=== PATIENT | female | born 1985 | race Two or more races ===

== ENCOUNTER → 2019-11-13 | Outpatient (REF) | payer BC, MEDICAID, SELFPAY | LOC: M SFHCLERA 14:01 | PROVIDERS: ATTEND Physician Assistant | DX: Z11.1 Encounter for screening for respiratory tuberculosis (principal) ==

== ENCOUNTER → 2019-11-13 | Outpatient (CLI) | payer BC, MEDICAID, SELFPAY ==
--- NOTE | 2019-11-13 14:51 | REP ---
CHEST, TWO VIEWS: No comparisons. Two views of the chest are performed. There is patchy infiltrate in the right upper lobe. Postprimary tuberculosis cannot be excluded. There is also a band of fibroatelectasis in the left upper lobe and the left hilum appears mildly retracted superiorly. The heart is normal in size. The mediastinal silhouette is unremarkable. Visualized osseous structures are intact. IMPRESSION: Patchy right upper lobe infiltrate. Band of fibroatelectasis left upper lobe. Postprimary tuberculosis cannot be excluded. Electronically Signed by Gian Mon MD 11/17/2019 03:59 P
== END ==
LOC: M LRY 14:06
PROVIDERS: ATTEND Physician Assistant
DX: Z11.1 Encounter for screening for respiratory tuberculosis (principal)

== ENCOUNTER → 2019-11-16 | Outpatient (REF) | payer BC, OTHER, SELFPAY | LOC: M SFHCLERA 08:37 | PROVIDERS: ATTEND Physician Assistant | DX: Z11.1 Encounter for screening for respiratory tuberculosis (principal) ==

== ENCOUNTER → 2019-11-17 | Outpatient (REF) | payer OTHER | LOC: M SFHCLERA 08:33 | PROVIDERS: ATTEND Physician Assistant | DX: Z11.1 Encounter for screening for respiratory tuberculosis (principal) ==

== ENCOUNTER → 2019-11-18 | Outpatient (REF) | payer BC, OTHER, SELFPAY | LOC: M SFHCLUC 11:12 | PROVIDERS: ATTEND Physician Assistant | DX: Z11.1 Encounter for screening for respiratory tuberculosis (principal) ==

== ENCOUNTER → 2019-11-19 | Outpatient (REF) | payer BC, OTHER, SELFPAY ==
[2019-11-19 13:09] LABS: HEMATOCRIT 43.7 % (36.0-47.0); HEMOGLOBIN 14.1 g/dl (12.0-15.5); MEAN CORPUSCULAR HEMOGLOBIN 28.3 pg (27.0-33.0); MEAN CORPUSCULAR HGB CONC 32.3 g/dl (32.0-36.5); MEAN CORPUSCULAR VOLUME 87.8 fl (80.0-96.0); PLATELET COUNT, AUTOMATED 214 10^3/uL (150-450); RED BLOOD COUNT 4.98 10^6/uL (4.00-5.40); WHITE BLOOD COUNT 7.6 10^3/uL (4.0-10.0)
[2019-11-19 13:30] LABS: ERYTHROCYTE SEDIMENTATION RATE 22 mm/hr (0-20)
[2019-11-19 13:39] LABS: ALBUMIN 3.4 GM/DL (3.2-5.2); ALT/SGPT 17 U/L (12-78); BILIRUBIN,TOTAL 0.3 MG/DL (0.2-1.0); BLOOD UREA NITROGEN 12 MG/DL (7-18); CARBON DIOXIDE LEVEL 25 MEQ/L (21-32); CHLORIDE LEVEL 103 MEQ/L (98-107); CREATININE FOR GFR 0.66 MG/DL (0.55-1.30); GLOMERULAR FILTRATION RATE > 60.0 (>60); GLUCOSE, FASTING 284 MG/DL (70-100); POTASSIUM SERUM 4.4 MEQ/L (3.5-5.1); SODIUM LEVEL 134 MEQ/L (136-145); TOTAL PROTEIN 7.7 GM/DL (6.4-8.2)
[2019-11-20 08:30] LABS: HIV 1&2 SCREEN CENTAUR NEGATIVE (NEGATIVE)
== END ==
LOC: M SFHCLERA 09:36
PROVIDERS: ATTEND Physician Assistant
DX: Z11.1 Encounter for screening for respiratory tuberculosis (principal)

== ENCOUNTER → 2019-11-30 | Outpatient (REF) | payer BC, OTHER, SELFPAY ==
[2019-11-30 14:11] LABS: BLOOD UREA NITROGEN 10 MG/DL (7-18); CALCIUM LEVEL 9.3 MG/DL (8.5-10.1); CARBON DIOXIDE LEVEL 25 MEQ/L (21-32); CHLORIDE LEVEL 105 MEQ/L (98-107); CHOLESTEROL LEVEL 241 MG/DL (<200); CHOLESTEROL RISK RATIO 2.802 (<5); CREATININE FOR GFR 0.66 MG/DL (0.55-1.30); GLOMERULAR FILTRATION RATE > 60.0 (>60); GLUCOSE, FASTING 284 MG/DL (70-100); HDL CHOLESTEROL 86 MG/DL (>40); LDL CHOLESTEROL 142 MG/DL (<100); NON-HDL-C 155 MG/DL; SODIUM LEVEL 136 MEQ/L (136-145); TRIGLYCERIDES LEVEL 63 MG/DL (<150)
[2019-11-30 14:35] LABS: HEPATITIS B SURFACE ANTIBODY POSITIVE (POSITIVE); HEPATITIS B SURFACE ANTIGEN NEGATIVE (NEGATIVE)
[2019-11-30 14:51] LABS: HEPATITIS C VIRUS ABY INDEX 0.1 INDEX (<0.8)
[2019-12-01 08:12] LABS: HEPATITIS A IgG TOTAL Positive (Negative); HEPATITIS B CORE ANTIBODY IGG Positive (Negative)
== END ==
LOC: M SFHCPLAZ 10:47
PROVIDERS: ATTEND Internal Medicine Infectious Disease
DX: Z87.898 Personal history of other specified conditions (principal); E11.9 Type 2 diabetes mellitus without complications

== ENCOUNTER → 2019-12-03 | Outpatient (REF) | payer MEDICAID, SELFPAY ==
[2019-12-03 17:14] LABS: CREATININE, URINE 77.7 MG/DL
[2019-12-08 00:09] LABS: ISLET CELL ANTIBODIES Negative (Neg:<1:1)
== END ==
LOC: M SFHCLERA 11:39
PROVIDERS: ATTEND Family Medicine
DX: R73.9 Hyperglycemia, unspecified (principal)

== ENCOUNTER → 2020-01-01 | Outpatient (CLI) | payer BC ==
[~2020-01-01] MED LIST: ISOVUE-370 76% 100ML VIAL As Ordered ONE
--- NOTE | 2020-01-01 10:56 | REP ---
REASON: Followup abnormal plain film examination of 11/13/2019, which has been reviewed. CONTRAST: 100 mL Isovue-370. There is no mediastinal or hilar adenopathy. There are no pleural or pericardial effusions. The imaged upper abdomen and imaged osseous structures are within normal limits. Evaluation of the lung street shows numerable pulmonary nodules various sizes from 3 mm to 1.3 cm, too numerous to count or individually assess, some pleural based, most intraparenchymal. In addition, the largest 1.3 cm-sized nodule seen in the left lung apical region has concomitant stranding and spiculation which extends to the anterior pleura. Two nodules abut each other in the right upper lobe, the largest component measures 1.2 cm. There is no shelbie evidence of a cavitary mass lesion. IMPRESSION: Markedly abnormal lung street with numerable pulmonary nodules, as described above. Etiology uncertain. Neoplastic versus infectious versus autoimmune. Electronically Signed by Gregory Vemra DO 01/01/2020 11:38 A
== END ==
LOC: M RAD 08:48
PROVIDERS: ATTEND Internal Medicine Infectious Disease
DX: R91.8 Other nonspecific abnormal finding of lung field (principal)
CPT/HCPCS: 71260; Q9967

== ENCOUNTER → 2020-01-11 | Outpatient (REF) | payer BC ==
[2020-01-11 12:54] LABS: HEMATOCRIT 38.6 % (36.0-47.0); HEMOGLOBIN 12.6 g/dl (12.0-15.5); MEAN CORPUSCULAR HGB CONC 32.6 g/dl (32.0-36.5); MEAN CORPUSCULAR VOLUME 88.7 fl (80.0-96.0); PLATELET COUNT, AUTOMATED 211 10^3/uL (150-450); RED BLOOD COUNT 4.35 10^6/uL (4.00-5.40); WHITE BLOOD COUNT 5.2 10^3/uL (4.0-10.0)
[2020-01-11 13:04] LABS: INR 1.03; PROTHROMBIN TIME 13.2 SECONDS (11.8-14.0)
[2020-01-11 13:05] LABS: PARTIAL THROMBOPLASTIN TIME 29.9 SECONDS (25.0-38.4)
== END ==
LOC: M LAB REF 12:39
PROVIDERS: ATTEND Internal Medicine Infectious Disease
DX: R91.1 Solitary pulmonary nodule (principal)

== ENCOUNTER → 2020-01-22 | Outpatient (CLI) | payer BC ==
[~2020-01-22] MED LIST changes: -ISOVUE-370 76% 100ML VIAL As Ordered ONE; +LANTINJ4 SC; +LIDOCAINE 1% MDV 20ML VIAL As Ordered ONE; +METF500T13 PO
--- NOTE | 2020-01-22 11:39 | REP ---
CHEST, SINGLE VIEW: Single view of the chest is performed status post left lung biopsy. I do not see evidence of a pneumothorax. Left upper lobe mass is noted. Ill-defined right upper lobe opacities are seen. Heart is normal in size. IMPRESSION: No pneumothorax, status post left lung biopsy. Electronically Signed by Gian Mon MD 01/22/2020 12:02 P
--- NOTE | 2020-01-22 13:28 | REP ---
CHEST, SINGLE VIEW: Single view of the chest is performed and compared to prior exam of the same day. Patient is status post left lung biopsy. There is a very small left apical pneumothorax. Left upper lobe mass is again seen. Ill-defined parenchymal opacities are again seen in the right upper lobe. Electronically Signed by Gian Mon MD 01/22/2020 02:44 P
[2020-01-22 14:00] VITALS: BP 133/82
--- NOTE | 2020-01-22 14:57 | REP ---
CHEST, SINGLE VIEW: Single view of the chest is performed status post left lung biopsy and compared to prior exams of the same day. The small left apical pneumothorax is stable. The patient is clinically stable. She will be discharged with instructions to return to the emergency department if any significant symptoms develop. Electronically Signed by Gian Mon MD 01/22/2020 03:07 P
--- NOTE | 2020-01-22 15:16 | REP ---
CT-GUIDED LEFT UPPER LOBE LUNG BIOPSY The procedure was performed under the direct supervision of Dr. Mon. Patient has a history of a 1.3 cm nodule in the left upper lobe seen on a previous CT scan dated 01/01/2020. The risks and benefits of the procedure were explained to the patient and informed consent was obtained through an valve inspector. The left upper lobe lung nodule was localized using CT guidance. The skin was prepped and draped in a sterile fashion. 1% lidocaine was used as a local anesthetic. Using CT guidance a 19/20 gauge coaxial needle biopsy system was inserted and advanced into the nodule. Six core biopsy samples were obtained and sent to lab. The chest x-ray performed immediately after the procedure did not demonstrate a pneumothorax. A film performed to hours later demonstrates a very small left apical pneumothorax. Another chest x-ray was performed to hours later showed a stable small left apical pneumothorax. The patient's vital signs were stable. Her O2 saturations were 100% on room air. Initially her discomfort rated a 2 out of 10. The patient tolerated the procedure well. After the appropriate amount of monitored convalescence the patient was discharged from the department. Electronically Signed by LARRY Gloria 01/22/2020 03:00 P Electronically Signed by Gian Mon MD 01/22/2020 03:07 P
== END ==
LOC: M IRPRO 07:44
PROVIDERS: ATTEND Internal Medicine Infectious Disease
DX: R91.1 Solitary pulmonary nodule (principal); Z22.7 Latent tuberculosis; J98.4 Other disorders of lung

== ENCOUNTER → 2020-02-16 | Outpatient (REF) | payer BC ==
[~2020-02-16] MED LIST changes: -LIDOCAINE 1% MDV 20ML VIAL As Ordered ONE
[2020-02-16 17:37] LABS: BASO % 0.3 % (0.0-1.0); EOS % 0.1 % (0.0-3.0); HEMATOCRIT 39.1 % (36.0-47.0); HEMOGLOBIN 12.9 g/dl (12.0-15.5); LYMPH # 2.1 10^3/uL (1.5-5.0); LYMPH % 31.2 % (24.0-44.0); MEAN CORPUSCULAR HEMOGLOBIN 28.6 pg (27.0-33.0); MEAN CORPUSCULAR VOLUME 86.7 fl (80.0-96.0); MONO # 0.4 10^3/uL (0.0-0.8); MONO % 5.7 % (0.0-5.0); NEUTROPHILS # 4.3 10^3/uL (1.5-8.5); NEUTROPHILS % 62.4 % (36.0-66.0); PLATELET COUNT, AUTOMATED 214 10^3/uL (150-450); RED BLOOD COUNT 4.51 10^6/uL (4.00-5.40); WHITE BLOOD COUNT 6.9 10^3/uL (4.0-10.0)
[2020-02-16 17:46] LABS: PROTHROMBIN TIME 12.9 SECONDS (11.8-14.0)
[2020-02-16 17:47] LABS: PARTIAL THROMBOPLASTIN TIME 29.3 SECONDS (25.0-38.4)
[2020-02-16 18:02] LABS: BLOOD UREA NITROGEN 11 MG/DL (7-18); CALCIUM LEVEL 9.1 MG/DL (8.5-10.1); CARBON DIOXIDE LEVEL 25 MEQ/L (21-32); CHLORIDE LEVEL 105 MEQ/L (98-107); CREATININE FOR GFR 0.66 MG/DL (0.55-1.30); GLOMERULAR FILTRATION RATE > 60.0 (>60); GLUCOSE, FASTING 172 MG/DL (70-100); POTASSIUM SERUM 4.8 MEQ/L (3.5-5.1); RHEUMATOID FACTOR QUANT < 10.0 IU/ML (<15.0); SODIUM LEVEL 134 MEQ/L (136-145)
[2020-02-21 08:10] LABS: ANCA-ATYPICAL <1:20 titer (Neg:<1:20); ANGIOTENSIN 1 CONVERTING ENZYM 35 U/L (14-82); ASPERGILLUS FLAVUS ABY Negative (Neg:<1:1); ASPERGILLUS FUMIGATUS ABY Negative (Neg:<1:1); ASPERGILLUS NIGER ABY Negative (Neg:<1:1); BLASTOMYCES ANTIBODY LEVEL Negative (Neg:<1:1); CRYPTOCOCCUS ANTIGEN SER Negative (Negative); CYTOPLASMIC NEUTROP AB ANCA-C <1:20 titer (Neg:<1:20); HISTOPLASMOSIS ANTIBODY Negative (Neg:<1:1); PERINUCLEAR AB ANCA-P <1:20 titer (Neg:<1:20)
== END ==
LOC: M LAB REF 16:49
PROVIDERS: ATTEND Internal Medicine Pulmonary Disease
DX: R91.8 Other nonspecific abnormal finding of lung field (principal)

== ENCOUNTER → 2020-03-10 | Outpatient (CLI) | payer BC ==
--- NOTE | 2020-03-10 08:41 | REP ---
Clinical: Follow up abnormal lung findings. Technique: Axial noncontrast images from the thoracic inlet to the upper abdomen with coronal and sagittal re-formations. Comparison: 01/01/2020. Findings: Innumerable bilateral pulmonary nodules measuring up to 1.5 cm diameter along with areas of linear fibrosis/scarring are again identified and unchanged as compared to prior dated 01/01/2020. Subtle mediastinal and hilar adenopathy cannot be excluded although evaluation is limited by the lack of contrast. No new consolidation/nodule or mass lesion is appreciated. No effusion. No pneumothorax. Tracheobronchial tree is patent. Further evaluation of the mediastinum demonstrates relatively normal thoracic aorta, pulmonary vasculature, and heart/pericardium. Musculoskeletal structures without focal osseous abnormality. Impression: 1. Innumerable bilateral pulmonary nodules and areas of scarring/fibrosis unchanged compared to prior examination. 2. No new acute process identified. Electronically Signed by James Vasquez MD 03/10/2020 08:32 A
== END ==
LOC: M RAD 07:26
PROVIDERS: ATTEND Internal Medicine Pulmonary Disease
DX: R91.8 Other nonspecific abnormal finding of lung field (principal); J84.10 Pulmonary fibrosis, unspecified

== ENCOUNTER → 2020-03-28 | Outpatient (REF) | payer BC ==
[2020-03-28 17:51] LABS: BASO % 0.3 % (0.0-1.0); EOS % 0.3 % (0.0-3.0); HEMATOCRIT 37.5 % (36.0-47.0); HEMOGLOBIN 12.1 g/dl (12.0-15.5); LYMPH # 3.3 10^3/uL (1.5-5.0); LYMPH % 52.3 % (24.0-44.0); MEAN CORPUSCULAR HEMOGLOBIN 28.5 pg (27.0-33.0); MEAN CORPUSCULAR HGB CONC 32.3 g/dl (32.0-36.5); MEAN CORPUSCULAR VOLUME 88.2 fl (80.0-96.0); MONO # 0.3 10^3/uL (0.0-0.8); MONO % 5.4 % (0.0-5.0); NEUTROPHILS # 2.6 10^3/uL (1.5-8.5); NEUTROPHILS % 41.5 % (36.0-66.0); PLATELET COUNT, AUTOMATED 249 10^3/uL (150-450); RED BLOOD COUNT 4.25 10^6/uL (4.00-5.40); WHITE BLOOD COUNT 6.3 10^3/uL (4.0-10.0)
[2020-03-28 18:02] LABS: INR 0.94; PARTIAL THROMBOPLASTIN TIME 28.7 SECONDS (25.0-38.4); PROTHROMBIN TIME 12.3 SECONDS (11.8-14.0)
[2020-03-28 18:10] LABS: BLOOD UREA NITROGEN 10 MG/DL (7-18); CALCIUM LEVEL 9.5 MG/DL (8.5-10.1); CARBON DIOXIDE LEVEL 29 MEQ/L (21-32); CHLORIDE LEVEL 104 MEQ/L (98-107); CREATININE FOR GFR 0.82 MG/DL (0.55-1.30); GLOMERULAR FILTRATION RATE > 60.0 (>60); GLUCOSE, FASTING 112 MG/DL (70-100); POTASSIUM SERUM 3.9 MEQ/L (3.5-5.1); SODIUM LEVEL 137 MEQ/L (136-145)
== END ==
LOC: M LAB REF 17:02
PROVIDERS: ATTEND Internal Medicine Pulmonary Disease
DX: R91.8 Other nonspecific abnormal finding of lung field (principal)

== ENCOUNTER 2020-04-06 07:00 | Day surgery (SDC) | payer BC ==
[2020-04-06] MEDS ORDERED: ONDANSETRON 4MG/2ML VIAL As Ordered ONE (07:19)
[2020-04-06] MEDS ORDERED: ROCURONIUM BROMIDE 50 MG/5 ML VIAL As Ordered ONE ×2 (07:19→09:43)
[2020-04-06] MEDS ORDERED: LIDOCAINE 2% 100MG/5ML SDV (FOR ANES.) As Ordered ONE ×2 (07:19→08:41)
[2020-04-06] MEDS ORDERED: dexameTHASONE 4 MG/ML 1ML VIAL (J1100 PER 1MG) As Ordered ONE (07:19)
[2020-04-06] MEDS ORDERED: propofoL 200 MG/20 ML VIAL As Ordered ONE (07:19)
[2020-04-06] MEDS ORDERED: fentaNYL 100 MCG/2 ML INJECTION (J3010) As Ordered ONE ×2 (07:20→10:14)
[2020-04-06] MEDS ORDERED: MIDAZOLAM INJ 2MG/2ML VIAL (J2250 PER 1MG) As Ordered ONE (07:20)
[2020-04-06] MEDS ORDERED: EPINEPHrine 1MG/10ML SYRINGE 1.5IN As Ordered ONE (07:33)
[2020-04-06] MEDS ORDERED: CETACAINE SPRAY 5GM As Ordered ONE (07:33)
[2020-04-06] MEDS ORDERED: THROMBIN SOLN 5,000 UNITS VIAL As Ordered ONE (07:33)
[2020-04-06] MEDS ORDERED: ALBUTEROL SULFATE 2.5 MG/0.5 ML INH NEB SOLN ONE (08:07)
[2020-04-06] MEDS ORDERED: ALBUTEROL SULFATE 2.5 MG/0.5 ML INH NEB SOLN As Ordered ONE (08:07)
[2020-04-06] MEDS ORDERED: LACRILUBE (AKWA TEARS) OPHTH OINT 3.5 GM As Ordered ONE (08:56)
[2020-04-06] MEDS ORDERED: PHENYLephrine HCL 500 MCG/5 ML (100MCG/ML) SYRINGE (J2370) As Ordered ONE (09:09)
[2020-04-06] MEDS ORDERED: SUGAMMADEX SODIUM 500 MG/5 ML VIAL (BRIDION) As Ordered ONE (09:33)
[2020-04-06] MEDS ORDERED: ACETAMINOPHEN 1000MG 100ML IV BTL (OFIRMEV) (J0131 PER 10MG) As Ordered ONE (09:57)
--- NOTE | 2020-05-18 11:26 | ROOR ---
Patient Name: Patricia Barton Procedure Date: 04/06/2020 7:28 AM Date of : 1985 Admit Type: Outpatient Age: 34 Room: Main OR Note Status: Sister Superior Override Attending MD: Va Acosta MD Procedure: Bronchoscopy Indications: Abnormal CT scan of chest Providers: Va Acosta MD (Doctor), Hemant Villarreal DO (1st Assisting Doctor), Rasheed Garduno [facility] (2nd Assisting Doctor) Referring MD: Vera BRYSON MD. (Referring MD) Requesting Physician: Medicines: General Anesthesia, Cetacaine topical, Lidocaine 4% via nebulizer with Albuterol 2.5 mg Complications: No immediate complications. Estimated blood loss: Minimal Procedure: Pre-Anesthesia Assessment: - Prior to the procedure, a History and Physical was performed, and patient medications and allergies were reviewed. The patient's tolerance of previous anesthesia was also reviewed. The risks and benefits of the procedure and the sedation options and risks were discussed with the patient. All questions were answered, and informed consent was obtained. Prior Anticoagulants: The patient has taken no previous anticoagulant or antiplatelet agents. ASA Grade Assessment: II - A patient with mild systemic disease. After reviewing the risks and benefits, the patient was deemed in satisfactory condition to undergo the procedure. The Bronchoscope was introduced through the mouth, via the endotracheal tube (the patient was intubated for the procedure) and advanced to the tracheobronchial tree of both lungs. The procedure was accomplished without difficulty. The patient tolerated the procedure well. Findings: The endotracheal tube is in good position. The visualized portion of the trachea is of normal caliber. The kevin is sharp. The tracheobronchial tree was examined to at least the first subsegmental level. Bronchial mucosa was normal; there are no endobronchial lesions, and no secretions. There was anatomic variant in right upper lobe with only two bronchial segments and in right middle lobe there were three bronchial segments. In the left upper lobe there was anatomic variant with three bronchial segments. [place] robotic bronchoscopy with electreomagnetic navigational bronchscopy was performed. The CT scan was used for planning purposes. A virtual bronchoscopic image was generated using the planning software and the kevin and right mainstem registration points were used for navigation. The target in the apical-posterior segment of the left upper lobe was marked. A nodule approx 1.4 cm in size was found and a pathway was created earlier and followed by robotic navigational bronchoscopy. Positioning was confirmed using fluoroscopy and centrally (in relation to the lesion) was confirmed using the Olympus radial probe US catheter. The locatable guide was removed from the extended working channel. Transbronchial needle aspirations of a nodule were performed in the posterior segment of the left upper lobe using a fine (21 gauge) needle and sent for routine cytology. The procedure was guided by fluoroscopy. Transbronchial needle aspiration technique was selected because the sampling site was not visible endoscopically. Transbronchial biopsies of a nodule were performed in the posterior segment of the left upper lobe using forceps and sent for histopathology examination. The procedure was guided by fluoroscopy. Transbronchial biopsy technique was selected because the sampling site was not accessible using standard endoscopic (bronchoscopic) techniques. Fluoroscopy guided transbronchial brushings of a nodule were obtained in the posterior segment of the left upper lobe with a needle brush and sent for histopathology examination. Transbronchial brushing technique was selected because the sampling site was not visible endoscopically. Bronchoalveolar lavage was performed in the [place] apical posterior segments (B1 & B2) of the lung and sent for cell count, bacterial culture, viral smears & culture, and fungal & AFB analysis and cytology. The return was blood-tinged and cloudy. Bronchoalveolar lavage was performed in the RUL anterior segment (B3) of the lung and sent for cell count, bacterial culture, viral smears & culture, and fungal & AFB analysis and cytology. The return was cloudy. Impression: - Abnormal CT scan of chest - The airway examination was normal. - Electromagnetic navigation bronchoscopy was performed. - A transbronchial needle aspiration was performed. - Transbronchial lung biopsies were performed. - Transbronchial brushings were obtained. - Bronchoalveolar lavage was performed. - Bronchoalveolar lavage was performed. Recommendation: - Follow up with bronchoscopist as previously scheduled. Va Acosta MD 04/06/2020 1:15:57 PM Terry Ledesma, Rasheed Garduno DO, [facility] Number of Addenda: 0 Note Initiated On: 04/06/2020 7:28 AM
--- NOTE | 2020-05-27 14:34 | REP ---
PORTABLE CHEST X-RAY CLINICAL: Postoperative bronchoscopy. COMPARISON: 01/22/2020. FINDINGS: The mediastinum and cardiac silhouette are within normal limits and stable. There is an area of linear scarring extending from the left suprahilar region toward the left apex, as well as subtle nodular opacities in the periphery of the right upper lung zone, which remain stable compared to prior examination. No acute consolidation, effusion, or pneumothorax. Skeletal structures intact. IMPRESSION: Stable findings as described above. MTDD
== END 2020-04-06 11:30 | disposition home or self-care (01) ==
LOC: M SDC 07:00
PROVIDERS: ATTEND Internal Medicine Pulmonary Disease
DX: R91.8 Other nonspecific abnormal finding of lung field (principal); E10.9 Type 1 diabetes mellitus without complications; Z79.4 Long term (current) use of insulin; Z79.84 Long term (current) use of oral hypoglycemic drugs; A15.0 Tuberculosis of lung; B38.9 Coccidioidomycosis, unspecified
CPT/HCPCS: 31623; 31624; 31627; 31628; 31629; 36415; 71045; 76000; 82947; 87070; 87102; 87116; 87205; 87206; 88104; 88173; 88305; J0131; J1100; J2250; J2370; J2405; J3010; S2900

== ENCOUNTER → 2020-04-13 | Outpatient (REF) | payer BC ==
[2020-05-28 17:05] LABS: ALBUMIN 3.4 GM/DL (3.2-5.2); ALT/SGPT 13 U/L (12-78); BILIRUBIN,TOTAL 0.5 MG/DL (0.2-1.0); BLOOD UREA NITROGEN 10 MG/DL (7-18); CALCIUM LEVEL 9.2 MG/DL (8.5-10.1); CARBON DIOXIDE LEVEL 25 MEQ/L (21-32); CHLORIDE LEVEL 106 MEQ/L (98-107); CHOLESTEROL LEVEL 208 MG/DL (<200); CHOLESTEROL RISK RATIO 3.104 (<5); CREATININE FOR GFR 0.78 MG/DL (0.55-1.30); GLOMERULAR FILTRATION RATE > 60.0 (>60); GLUCOSE, FASTING 172 MG/DL (70-100); HDL CHOLESTEROL 67 MG/DL (>40); HEMOGLOBIN A1c 7.9 %; LDL CHOLESTEROL 125 MG/DL (<100); NON-HDL-C 141 MG/DL; POTASSIUM SERUM 4.6 MEQ/L (3.5-5.1); SODIUM LEVEL 137 MEQ/L (136-145); TOTAL PROTEIN 7.6 GM/DL (6.4-8.2); TRIGLYCERIDES LEVEL 78 MG/DL (<150)
== END ==
LOC: M SFHCLERA 06:27
PROVIDERS: ATTEND Family Medicine
DX: E11.9 Type 2 diabetes mellitus without complications (principal)